=== PATIENT | male | born 1980 | race Caucasian/White ===

== ENCOUNTER 2018-08-30 20:25 | Emergency (ER) | payer MEDICAID, OTHER ==
[~2018-08-30] VITALS: Ht 172.7 cm; Wt 90.9 kg
[~2018-08-30 20:25] MED LIST: MUPI15CR TP
[2018-08-30 20:40] VITALS: BP 169/95
== END 2018-08-31 02:08 | disposition left against medical advice (07) ==
LOC: ER 20:26
DX: L02.415 Cutaneous abscess of right lower limb (principal); Z53.21 Procedure and treatment not carried out due to patient leaving prior to being seen by health care provider

== ENCOUNTER → 2020-03-22 | Emergency (ER) | payer OTHER ==
[~2020-03-22] VITALS: Ht 172.7 cm; Wt 90.9 kg
[2020-03-22 03:16] VITALS: BP 139/82
== END | disposition home or self-care (01) ==
LOC: ER 03:00
DX: J02.9 Acute pharyngitis, unspecified (principal); B34.9 Viral infection, unspecified; J34.89 Other specified disorders of nose and nasal sinuses; R49.1 Aphonia; F17.200 Nicotine dependence, unspecified, uncomplicated; F15.90 Other stimulant use, unspecified, uncomplicated; Z86.14 Personal history of Methicillin resistant Staphylococcus aureus infection; Z79.899 Other long term (current) drug therapy
CPT/HCPCS: 99281

== ENCOUNTER 2023-09-04 05:28 | Emergency (ER) | payer MEDICAID, OTHER, SELFPAY ==
[~2023-09-04] VITALS: Ht 172.7 cm; Wt 109.1 kg
[2023-09-04 06:40] VITALS: BP 103/62; PULSE 67; RESP 14; TEMP 98.8; O2SAT 90
== END 2023-09-04 06:43 | disposition home or self-care (01) ==
LOC: ER 05:29
DX: S01.01XA Laceration without foreign body of scalp, initial encounter (principal); F15.90 Other stimulant use, unspecified, uncomplicated; Z79.2 Long term (current) use of antibiotics; Y04.0XXA Assault by unarmed brawl or fight, initial encounter; Y93.89 Activity, other specified; Y92.89 Other specified places as the place of occurrence of the external cause; Y99.8 Other external cause status
CPT/HCPCS: 12002; 99282; A6449

== ENCOUNTER 2023-11-07 14:43 | Emergency (ER) | payer MEDICAID ==
[~2023-11-07] VITALS: Ht 172.7 cm; Wt 115.0 kg
[2023-11-07 14:57] VITALS: BP 152/89; PULSE 105; RESP 18; TEMP 97.7; O2SAT 94
[2023-11-07] MEDS ORDERED: PERM60CR19 TOP (16:40)
[2023-11-07] MEDS: diphenhydrAMINE 25mg capsule PO ONE (16:49)
[2023-11-07] MEDS: dexamethasone sod phosphate 10mg/ml inj PO STA (16:50)
== END 2023-11-07 16:53 | disposition home or self-care (01) ==
LOC: ER 14:44
DX: R21 Rash and other nonspecific skin eruption (principal); F15.90 Other stimulant use, unspecified, uncomplicated; Z79.2 Long term (current) use of antibiotics
CPT/HCPCS: 99283; J1100; Q0163

== ENCOUNTER 2024-09-13 00:29 | Emergency (ER) | payer MEDICAID ==
[~2024-09-13] VITALS: Ht 170.2 cm; Wt 113.5 kg
[2024-09-13 00:32] VITALS: BP 143/92; PULSE 81; O2SAT 96
--- NOTE | 2024-09-13 00:57 | RADIOLOGY REPORT ---
EXAMINATIONS: 3 views of the left wrist CLINICAL HISTORY: WRIST PAIN COMPARISON: None Findings and impression: No grossly displaced fractures, dislocations or bony destructive changes are evident on the provided views. No sizable, radiopaque foreign bodies noted. If the patient has continued symptoms clinically suspicious for radiographically occult fracture, fol low-up radiographs could be obtained in 7-10 days time.
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
[2024-09-13 01:43] VITALS: TEMP 98
[2024-09-13 01:47] VITALS: RESP 12
[2024-09-13] MEDS: ketorolac trometh 15mg/ml vial 15 MG/ML ML IM ONE (01:47)
== END 2024-09-13 01:50 | disposition home or self-care (01) ==
LOC: ER 00:30
DX: S60.212A Contusion of left wrist, initial encounter (principal); X58.XXXA Exposure to other specified factors, initial encounter; Y93.55 Activity, bike riding; Y92.89 Other specified places as the place of occurrence of the external cause; Y99.8 Other external cause status
CPT/HCPCS: 73110; 96372; 99283; J1885